=== PATIENT | male | born 1955 | race Caucasian/White ===

== ENCOUNTER → 2016-11-11 | Outpatient (CLI) | payer BC ==
--- NOTE | 2016-11-11 17:10 | US ---
EXAMINATION TYPE: US carotid duplex BILAT DATE OF EXAM: 11/11/2016 3:38 PM COMPARISON: NONE CLINICAL HISTORY: Occlusion and Stenosis of LT carotid artery I65.22. Murmur vs. Bruit left neck per patient history. EXAM MEASUREMENTS: RIGHT: Peak Systolic Velocity (PSV) cm/sec ----- Right CCA: 101.2 ----- Right ICA: 85.8 ----- Right ECA: 113.2 ICA/CCA ratio: 0.8 RIGHT: End Diastole cm/sec ----- Right CCA: 20.4 ----- Right ICA: 26.1 ----- Right ECA: 19.7 LEFT: Peak Systolic Velocity (PSV) cm/sec ----- Left CCA: 88.3 ----- Left ICA: 91.5 ----- Left ECA: 86.7 ICA/CCA ratio: 1.0 LEFT: End Diastole cm/sec ----- Left CCA: 22.0 ----- Left ICA: 25.2 ----- Left ECA: 13.4 VERTEBRALS (direction of flow): Right Vertebral: Antegrade Left Vertebral: Antegrade Very mild intimal thickening at bilateral carotid bifurcation and PSV is within normal limits bilater ally. Grayscale images show no significant plaque at carotid bulb level bilaterally. Velocity measurements and ratios in visualized portion of both internal carotid arteries appear within normal limits. IMPRESSION: No significant stenosis identified in either internal carotid artery.
== END | disposition home or self-care (01) ==
LOC: RADUSWWP 15:00
PROVIDERS: ATTEND Family Medicine
DX: I65.22 Occlusion and stenosis of left carotid artery (principal)
CPT/HCPCS: 93880

== ENCOUNTER → 2018-04-06 | Outpatient (CLI) | payer BC ==
--- NOTE | 2018-04-06 10:57 | CT ---
EXAMINATION TYPE: CT abdomen pelvis w con DATE OF EXAM: 04/06/2018 COMPARISON: None. HISTORY: Left lower quadrant pain CT DLP: 786.40 mGycm, Automated Exposure Control for Dose Reduction was Utilized. CONTRAST: CT scan of the abdomen and pelvis is performed with oral and with IV Contrast, patient injected with 100 mL of Isovue 300. FINDINGS: LUNG BASES: No significant abnormality is appreciated. LIVER/GB: There is simple appearing 1.4 cm thin-walled cyst anteriorly left hepatic lobe axial image 17. Few additional subcentimeter hypodense lesions are too small to further characterize but presumed benign, for reference 2-3 lesions are noted axial image 13 in the hepatic dome. PANCREAS: No significant abnormality is seen. SPLEEN: No significant abnormality is seen. ADRENALS: No significant abnormality is seen. KIDNEYS: There are a few simple appearing thin-walled cysts scattered throughout both kidneys includi ng a dominant 4.2 cm central parapelvic cysts left kidney mid pole level axial image 38. There is sym metric cortical medullary uptake and excretion from both kidneys without evidence of hydronephrosis b ilaterally. BOWEL: The oral contrast reaches level of splenic flexure. There is no suspicious small or large ivan l dilatation. There is mild to moderate diffuse concentric wall thickening of jejunal loops in the le ft upper to mid abdomen. Appendix not visualized presumed surgically absent. No inflammatory changes noted at base of cecum. There is slightly redundant sigmoid colon. A few diverticula are felt present scattered throughout the sigmoid colon. There is no convincing CT evidence for acute diverticulitis. PROSTATE/SEMINAL VESICLES: No gross abnormality seen. LYMPH NODES: No greater than 1cm abdominal or pelvic lymph nodes are appreciated. OSSEOUS STRUCTURES: Postsurgical changes lumbosacral junction is present with posterior interpedicula r rods and screws and artificial disc material. OTHER: There is mild to moderate calcified plaque of aorta extending into branch vessels. IMPRESSION: Possible enteritis involving left-sided jejunal loops. Consider infectious or inflammator y etiologies. Correlate clinically. No acute diverticulitis.
== END | disposition home or self-care (01) ==
LOC: RADCTMAIN 07:28
PROVIDERS: ATTEND Family Medicine
DX: R10.32 Left lower quadrant pain (principal)
CPT/HCPCS: 74177; Q9967

== ENCOUNTER 2018-12-22 10:37 | Day surgery (SDC) | payer BC ==
[2018-12-20 14:54] VITALS: BMI 25.0
[~2018-12-22 10:37] MED LIST: DEXAMETHASONE SOD PHOSPHATE 10 MG/ML 1 ML VIAL IV ONE; DEXAMETHASONE SOD PHOSPHATE 4 MG/ML 1 ML VIAL IV ONE; FAMOTIDINE 20 MG/2 ML VIAL IV ONE; HYDROmorphone 0.5 MG/0.5 ML SYRINGE IVP PRN; LACTATED RINGERS 1,000 ML IV SCH; LIDOCAINE 1% 20 ML VIAL (10MG/ML) FOR IV START INTRADERMA PRN; ONDANSETRON 4 MG/2 ML VIAL IVP ONE
[2018-12-22] MEDS ORDERED: PROPOFOL 10 MG/ML 20 ML VIAL IV ONE (14:03)
[2018-12-22] MEDS ORDERED: LIDOCAINE 1% INJ 10MG/ML (20 ML MDV) ONE (14:03)
[2018-12-22] MEDS ORDERED: MIDAZOLAM 2 MG/2 ML VIAL ONE (14:03)
[2018-12-22] MEDS ORDERED: DEXAMETHASONE SOD PHOS (MDV) 100 MG/10 ML VIAL ONE (14:03)
[2018-12-22] MEDS ORDERED: fentaNYL (PF) 50 MCG/ML 2 ML AMP ONE (14:03)
[2018-12-22] MEDS ORDERED: SUCCINYLCHOLINE CHLORIDE 100 MG/5 ML SYR IV ONE (14:03)
[2018-12-22] MEDS ORDERED: LACTATED RINGERS 1,000 ML IV ONE (14:45)
--- NOTE | 2018-12-22 14:46 | P.OP ---
Date of Procedure: 12/22/18 Preoperative Diagnosis: Left true vocal cord lesion Postoperative Diagnosis: Same Procedure(s) Performed: Microlaryngoscopy with excision left true vocal cord lesion Anesthesia: ROVERTOA Surgeon: Will Ramos Estimated Blood Loss (ml): 1 Pathology: other (Left vocal cord lesion) Condition: stable Disposition: PACU Indications for Procedure: This 63-year-old white male with chronic hoarseness. He is noted to have a white plaque-like lesion of the left anterior true vocal cord on flexible laryngoscopy as well as video stroboscopy Operative Findings: Left anterior vocal cord lesion which appeared more polypoid then plaque-like today approximate 3 mm smooth and rounded Description of Procedure: Patient was brought in the operative suite and placed in a supine position. The patient underwent induction of general anesthesia with oral endotracheal intubation with a microlaryngoscopy tube without difficulty. The patient was prepped and draped in usual aseptic fashion. Tooth guard was placed and the patient underwent direct laryngoscopy with systematic evaluation of the base of tongue vallecula both piriform sinuses post cricoid area and endolarynx. With the vocal cords and good visualization the laryngoscope was placed in suspension and the vocal cords were well visualized. The left vocal cord lesion was excised with microdissection technique using cup forceps and microscissors which was superficial to the lamina propria. Good hemostasis was noted. Patient was suctioned in the larynx and the endoscope and tooth guard were removed. Patient was allowed to emerge from general anesthesia having tolerated procedure well was extubated in the operating suite and transferred to the postop recovery area in satisfactory condition.
[2018-12-22 15:20] VITALS: TEMP 97.2
[2018-12-22 15:54] VITALS: RESP 18
[2018-12-22 16:27] VITALS: BP 127/68; PULSE 68
== END 2018-12-22 16:39 | disposition home or self-care (01) ==
LOC: OR 10:37
PROVIDERS: ATTEND Otolaryngology
DX: J38.1 Polyp of vocal cord and larynx (principal); E78.00 Pure hypercholesterolemia, unspecified; I10 Essential (primary) hypertension; Z85.46 Personal history of malignant neoplasm of prostate; Z79.899 Other long term (current) drug therapy; Z88.1 Allergy status to other antibiotic agents; Z88.8 Allergy status to other drugs, medicaments and biological substances; Z91.09 Other allergy status, other than to drugs and biological substances
CPT/HCPCS: 88305; 31535; J2250; J1100 ×2; J2405; J2001; J3010; J0330; J2704

== ENCOUNTER → 2020-05-08 | Outpatient (CLI) | payer BC | END | disposition home or self-care (01) | LOC: LABWHC1 11:00 | PROVIDERS: ATTEND Family Medicine | DX: R05 Cough (principal) | CPT/HCPCS: U0003; C9803 ==

== ENCOUNTER → 2021-11-19 | Outpatient (CLI) | payer BC ==
--- NOTE | 2021-11-19 21:48 | CT ---
EXAMINATION TYPE: CT lumbar spine wo con DATE OF EXAM: 11/19/2021 7:13 PM COMPARISON: CT dated 04/06/2018 HISTORY: back pain CT DLP: 983 mGycm Automated exposure control for dose reduction was used. Technique: Unenhanced CT of the lumbar spine was performed. Bone and soft tissue window settings are submitted as well as coronal and sagittal reconstructions. Findings: Previous posterior spinal canal decompression at L5 with transpedicular fixation of L5 and S1 using 2 rods and 4 metallic screws. No evidence of prosthesis break or displacement. Partially fused L5 and S1. Mild anterolisthesis of L5 over S1. Exaggerated lumbar lordosis. No other significant anterolisthesis or retrolisthesis. No definite vertebral body collapse or acute displaced fracture. Degenerative changes of the lumbar spine with multilevel opposing endplate osteop hytosis. Partially calcified L5-S1 disc with disc prosthesis. Irregular L5 lower endplate.. L1-L2: No significant disc disease, central spinal canal stenosis or neuroforaminal stenosis. L2-L3: No significant disc disease, central spinal canal stenosis or neuroforaminal stenosis. L3-L4: Mild diffuse posterior disc bulge associated with mild ligamentum flavum hypertrophy, causing mild central spinal canal stenosis without significant neuroforaminal stenosis. L4-L5: Diffuse posterior disc bulge more inclined to the right side associated with severe bilateral neuroforaminal stenosis more on the right side, likely compressing the corresponding L4 nerve root mo re on the right side. Suboptimal assessment of the spinal canal due to artifacts from adjacent metall ic prosthesis. L5-S1: Suboptimal assessment due to artifacts from metallic prosthesis. Multiple variable sized bilateral renal cysts, suboptimally assessed by this nonenhanced CT scan. Sca ttered hepatic hypodensities likely representing hepatic cysts. Arterial atherosclerotic calcificatio ns. No paraspinal lesion. IMPRESSION: Postoperative changes at L5-S1 level as detailed above. Mild degenerative changes of the lumbar spine with mild L3-4 and L4-5 disc disease as detailed above. Bilateral L4-5 neural foraminal stenosis more on the right side, please correlate clinically. Further MRI assessment can be considered if clinically required. Other incidental findings as detailed above .
== END | disposition home or self-care (01) ==
LOC: RADCTMAIN 18:30
PROVIDERS: ATTEND Specialist
DX: M47.816 Spondylosis without myelopathy or radiculopathy, lumbar region (principal); M48.061 Spinal stenosis, lumbar region without neurogenic claudication; M43.17 Spondylolisthesis, lumbosacral region; M43.27 Fusion of spine, lumbosacral region; M40.46 Postural lordosis, lumbar region; M51.26 Other intervertebral disc displacement, lumbar region
CPT/HCPCS: 72131

== ENCOUNTER → 2022-01-17 | Outpatient (CLI) | payer BC ==
--- NOTE | 2022-01-17 13:27 | CA ---
Exercise Stress Test Report Name: Nik Abreu Exam Date: 01/17/2022 11:18 Exam Location: [facility] Stress Ht (in): 68 Wt (lb): 165 BSA: 1.88 Ordering Phys: Davian Burks MD Referring Phys: Miguel Webster [facility]1983 Technologist: Fili Valenzuela Age: 66 Gender: M : 1955 Procedure CPT: Indications: R00.1 Bradycardia R07.9 Chest Pain ICD-10 Codes: Patient History: Chest Pain, Fitgue and palpitations Medications: Lisinopril, aspirin, celebrix Meds past 24 hrs: Pretest Chest Pain: STRESS TEST Jonny Protocol Exercise Duration (min:sec): 08:[address] Depressions (mm): Angina Score: Amaya Score: Resting HR (bpm): 59 Peak HR (bpm): 129 Resting BP (mmHg): 137 / 66 Peak BP (mmHg): 129 / 56 MPHR: 152 Target HR: 129 % MPHR: 85 METS: 9.7 Total Dose: Peak Dose: Atropine: Double Product: 74445 BP Response: Stress Termination: Reached target heart rate Stress Symptoms: Some chest pressure and fitgue Stress Summary: ECG ANALYSIS Resting ECG: Stress ECG: CONCLUSIONS Excellent exercise tolerance Good augmentation in the blood pressure and heart rate response to exercise Essentially normal exercise treadmill stress test Dr. Leno Robles MD (Electronically Signed) Final Date: 17 January 2022 13:26
--- NOTE | 2022-01-17 18:54 | CA ---
Transthoracic Echo Report Name: Nik Abreu Age: 66 Gender: M : 1955 Exam Date: 01/17/2022 11:18 Exam Location: [place] Echo Ht (in): 67 Wt (lb): 170 Ordering Physician: Davian Burks MD Attending/Referring Phys: Miguel Webster [facility] Insulation Worker Carolyn Augustine RDCS Procedure CPT: Indications: R00.1 Bradycardia R07.9 Chest Pain Cardiac Hx: Technical Quality: Good Contrast 1: Total Dose (mL): Contrast 2: Total Dose (mL): MEASUREMENTS (Male / Female) Normal Values 2D ECHO LV Diastolic Diameter PLAX 4.0 cm 4.2 - 5.9 / 3.9 - 5.3 cm LV Systolic Diameter PLAX 2.0 cm IVS Diastolic Thickness 1.3 cm 0.6 - 1.0 / 0.6 - 0.9 cm LVPW Diastolic Thickness 1.1 cm 0.6 - 1.0 / 0.6 - 0.9 cm LV Relative Wall Thickness 0.6 LA Volume 27.6 cm??? 18 - 58 / 22 - 52 cm??? M-MODE Aortic Root Diameter MM 3.3 cm LA Systolic Diameter MM 3.1 cm LA Ao Ratio MM 0.9 MV E Point Septal Separation 2.0 cm AV Cusp Separation MM 1.7 cm DOPPLER AV Peak Velocity 220.7 cm/s AV Peak Gradient 19.5 mmHg AV Mean Velocity 155.6 cm/s AV Mean Gradient 10.9 mmHg AV Velocity Time Integral 43.1 cm LVOT Peak Velocity 146.3 cm/s LVOT Peak Gradient 8.6 mmHg MV Area PHT 2.2 cm??? MR Peak Velocity 124.9 cm/s MR Peak Gradient 6.2 mmHg Mitral E Point Velocity 72.9 cm/s Mitral A Point Velocity 106.3 cm/s Mitral E to A Ratio 0.7 MV Deceleration Time 346.5 ms MV E' Velocity 5.9 cm/s Mitral E to MV E' Ratio 12.4 TR Peak Velocity 114.6 cm/s TR Peak Gradient 5.3 mmHg Right Ventricular Systolic Press 10.3 mmHg FINDINGS Left Ventricle Mildly increased septal wall thickness. Left ventricular ejection fraction is estimated at 55-60 %. Left ventricular cavity size normal. Right Ventricle The right ventricle is normal in size and function. Right Atrium The right atrium is normal in size. Left Atrium The left atrium is normal in size. Mitral Valve Structurally normal mitral valve without significant stenosis or prolapse. There is mild mitral regurgitation. Aortic Valve Mild aortic stenosis with a peak gradient of 20 mmHg and a mean gradient of 11 mmHg. There is no aortic regurgitation. Can not exclude possible bicuspid aortic valve. Diffuse thickening of the aortic valve cusps with reduced excursion. Tricuspid Valve Structurally normal tricuspid valve without significant stenosis. Pulmonary artery systolic pressure is normal. Trace tricuspid regurgitation. Pulmonic Valve Structurally normal pulmonic valve without significant stenosis. There is no pulmonic regurgitation. Pericardium Normal pericardium without effusion. Aorta Normal aortic root dimension. CONCLUSIONS Normal left ventricular dimension and systolic function Aortic sclerosis with mild aortic stenosis. 2 with bicuspid aortic valve Previewed by: Dr. Leno Robles MD (Electronically Signed) Final Date: 17 January 2022 18:53
== END | disposition home or self-care (01) ==
LOC: RADNMMAIN 10:16
PROVIDERS: ATTEND Family Medicine
DX: I08.3 Combined rheumatic disorders of mitral, aortic and tricuspid valves (principal)
CPT/HCPCS: 93017; 93306

== ENCOUNTER → 2023-12-22 | Outpatient (CLI) | payer MEDICARE ==
--- NOTE | 2023-12-22 21:23 | MR ---
MRI CERVICAL SPINE: CLINICAL HISTORY: Neck pain for 12 months, history of surgery. Spinal stenosis . TECHNIQUE: Multiplanar, multisequence imaging of the cervical spine is performed without IV contrast. COMPARISON: None. FINDINGS: Sagittal images of the cervical spine show the craniocervical junction to appear within nor mal limits. The cervical and upper thoracic spinal cord is normal in course, caliber, and signal. V ertebral alignment is anatomic. There is artifact from surgical changes at the C4-C6 levels. The vert ebral body and intravertebral disk heights are satisfactory above and below surgical levels. The bon e marrow signal intensity is within normal limits above and below surgical levels. Axial images show C2-C3 level to appear within normal limits. Axial images at C3-C4 level show left-sided uncovertebral facet degenerative and mild broad disc bulg e causing mild right and moderate to severe left-sided neural foraminal narrowing. Axial images at C4-C5 and C5-C6 levels show artifact from surgical change. There is mild to moderate left greater right bilateral neural foraminal narrowing at C5-C6 level. Axial images at C6-C7 level and C7-T1 levels appear within normal limits. IMPRESSION: Postsurgical changes C4-C6 level with satisfactory alignment. Some multilevel degenerativ e changes are present greatest at C3-C4 level as detailed above.
== END | disposition home or self-care (01) ==
LOC: RADMRIMAIN 18:43
PROVIDERS: ATTEND Orthopaedic Surgery
DX: M47.812 Spondylosis without myelopathy or radiculopathy, cervical region (principal); M48.02 Spinal stenosis, cervical region
CPT/HCPCS: 72141

== ENCOUNTER → 2024-01-01 | Day surgery (SDC) | payer MEDICARE ==
[2023-12-29 15:47] VITALS: BMI 25.8
[~2024-01-01] MED LIST changes: -DEXAMETHASONE SOD PHOSPHATE 10 MG/ML 1 ML VIAL IV ONE; -DEXAMETHASONE SOD PHOSPHATE 4 MG/ML 1 ML VIAL IV ONE; -FAMOTIDINE 20 MG/2 ML VIAL IV ONE; -HYDROmorphone 0.5 MG/0.5 ML SYRINGE IVP PRN; -LACTATED RINGERS 1,000 ML IV SCH; -LIDOCAINE 1% 20 ML VIAL (10MG/ML) FOR IV START INTRADERMA PRN; -ONDANSETRON 4 MG/2 ML VIAL IVP ONE; +PROPOFOL 10 MG/ML 20 ML VIAL IV ONE
[2024-01-01 10:05] VITALS: TEMP 97.9
[2024-01-01] MEDS: LACTATED RINGERS 1,000 ML IV SCH (10:11)
[2024-01-01] MEDS: IV FLUID CONTINUATION 1,000 ML IV ONE (10:11)
--- NOTE | 2024-01-01 11:14 | P.PCN ---
Date of Procedure: 01/01/24 Procedure(s) Performed: BRIEF HISTORY: Patient is a 68-year-old pleasant white male scheduled for an elective colonoscopy as a part of screening for colon cancer. PROCEDURE PERFORMED: Colonoscopy. PREOPERATIVE DIAGNOSIS:Screening for colon cancer. IV sedation per Anesthesia. PROCEDURE: After informed consent was obtained, the patient, was brought into the endoscopy unit. IV sedation was administered by Anesthesia under continuous monitoring. Digital rectal examination was normal. Initially the Olympus CF-160 flexible video colonoscope was then inserted in the rectum, gradually advanced into the cecum without any difficulty. Careful examination was performed as the scope was gradually being withdrawn. Ileocecal valve and the appendiceal orifice were visualized and appeared normal. Prep was excellent. Mucosa of the cecum, ascending colon, transverse colon, descending colon, sigmoid colon, and rectum appeared normal. Retroflexion was performed in the rectum and no lesions were seen. The patient tolerated the procedure well. IMPRESSION: Normal-appearing colon from rectum to cecum no evidence of colorectal neoplasia. Scattered sigmoid diverticulosis. RECOMMENDATIONS: Findings of this examination were discussed with the patient as well as his family. He was advised to have repeat screening colonoscopy in 10 years..
[2024-01-01 11:34] VITALS: BP 120/67; PULSE 56; RESP 18
== END ==
LOC: ORWHC2ENDO 09:17
PROVIDERS: ATTEND Internal Medicine Gastroenterology
DX: Z12.11 Encounter for screening for malignant neoplasm of colon (principal); K57.30 Diverticulosis of large intestine without perforation or abscess without bleeding; I10 Essential (primary) hypertension; E78.5 Hyperlipidemia, unspecified; Z88.1 Allergy status to other antibiotic agents; Z85.46 Personal history of malignant neoplasm of prostate; Z79.82 Long term (current) use of aspirin; Z79.899 Other long term (current) drug therapy
CPT/HCPCS: J2704; G0121